=== PATIENT | male | born 1940 | race Caucasian/White ===

== ENCOUNTER 2022-05-31 09:23 | Observation (INO) ==
[2022-05-31] MEDS ORDERED: SODIUM CHLORIDE 0.9% 500 ML IV STA (09:45)
[2022-05-31] MEDS ORDERED: PANTOPRAZOLE 40 MG VIAL IV STA (09:45)
[2022-05-31 10:06] LABS: Basophils # 0.1 10*3/uL (0.0-0.2); Basophils % 1.2 % (0.0-0.8); Eosinophils # 0.2 10*3/uL (0.0-0.87); Eosinophils % 2.8 % (0.00-10.9); Hematocrit 28.8 VOL% (42.0-52.0); Hemoglobin 8.7 GM/DL (14.0-18.0); Immature Granulocytes % 0.5 %; Immature Granulocytes Absolute 0.03 #; Lymphocytes # 1.1 10*3/uL (1.4-4.0); Lymphocytes % 17.6 % (21.2-54.2); Mean Corpuscular HGB Conc 30.2 GM/DL (32-36); Mean Corpuscular Volume 80.2 FL (87-102); Mean Platelet Volume 9.9 FL (9.6-12.0); Monocytes # 0.7 10*3/uL (0.11-0.8); Neutrophils % 65.9 % (38.7-73.9); Platelet Count 369 T/CUMM (130-400); Red Blood Count 3.59 MC/CUMM (3.8-5.5)
[2022-05-31 10:17] LABS: PT Patient Result 10.8 SECS (10.1-12.1); Partial Thromboplastin Time 24.5 SECS (23.7-32.9)
[2022-05-31 10:19] LABS: Alanine Aminotransferase 22 U/L (16-61); Albumin 3.5 G/DL (3.4-5.0); Alkaline Phosphatase 50 U/L (45-117); Aspartate Amino Transferase 21 U/L (0-37); Bilirubin,Total < 0.39 MG/DL (0.20-1.00); Blood Urea Nitrogen 39 MG/DL (7-18); Calcium 8.7 MG/DL (8.5-10.1); Carbon Dioxide 28 MMOL/L (21-32); Chloride 108 MMOL/L (98-107); Glucose 116 MG/DL (74-106); Osmolality,Calculated 290.3 MOS/KG (273-304); Potassium 4.4 MMOL/L (3.5-5.1); Sodium 141 MMOL/L (136-145)
[2022-05-31] MEDS ORDERED: ONDANSETRON 4 MG/2 ML VIAL IV PRN (11:34)
[2022-05-31] MEDS ORDERED: ACETAMINOPHEN 325 MG TABLET PO PRN (11:34)
[2022-05-31] MEDS ORDERED: SODIUM CHLORIDE 0.9% 1,000 ML IV PRN ×3 (11:40→16:31)
[2022-05-31 13:02] LABS: Hematocrit 25.6 VOL% (42.0-52.0); Hemoglobin 7.9 GM/DL (14.0-18.0)
[2022-05-31] MEDS ORDERED: DOCUSATE/SENNA 50-8.6 MG TABLET PO PRN (16:05)
[2022-05-31] MEDS: minoxidiL 2.5 MG TABLET PO SCH (22:03)
[2022-05-31] MEDS: TERAZOSIN 5 MG CAPSULE PO SCH (22:03)
[2022-05-31] MEDS: SPIRONOLACTONE 25 MG TABLET PO SCH (22:03)
[2022-05-31] MEDS: PANTOPRAZOLE 40 MG VIAL IV SCH (22:31)
[2022-06-01 00:22] LABS: Hematocrit 28.2 VOL% (42.0-52.0); Hemoglobin 9.1 GM/DL (14.0-18.0)
[2022-06-01 05:46] LABS: Basophils # 0.1 10*3/uL (0.0-0.2); Basophils % 0.9 % (0.0-0.8); Eosinophils # 0.2 10*3/uL (0.0-0.87); Eosinophils % 3.5 % (0.00-10.9); Hematocrit 30.2 VOL% (42.0-52.0); Hemoglobin 9.5 GM/DL (14.0-18.0); Immature Granulocytes % 0.6 %; Immature Granulocytes Absolute 0.03 #; Mean Corpuscular HGB Conc 31.5 GM/DL (32-36); Mean Corpuscular Volume 80.7 FL (87-102); Mean Platelet Volume 9.6 FL (9.6-12.0); Monocytes # 0.6 10*3/uL (0.11-0.8); Monocytes % 11.3 % (1.7-12.7); Neutrophils % 64.7 % (38.7-73.9); Platelet Count 322 T/CUMM (130-400); Red Blood Count 3.74 MC/CUMM (3.8-5.5); Red Cell Distribution Width 19.2 % (9.3-17.3); White Blood Count 5.4 T/CUMM (4-12)
[2022-06-01 06:01] LABS: Potassium 4.1 MMOL/L (3.5-5.1)
[2022-06-01] MEDS ORDERED: SODIUM CHLORIDE 0.9% 1,000 ML IV SCH (08:00)
[2022-06-01] MEDS ORDERED: LIDOCAINE 2% 5 ML VIAL ONE (09:56)
[2022-06-01] MEDS ORDERED: propofoL 200 MG/20 ML VIAL IV ONE (09:56)
[2022-06-01] MEDS: FENOFIBRATE 160 MG TABLET PO SCH (10:56)
[2022-06-01] MEDS: TERAZOSIN 5 MG CAPSULE PO SCH ×2 (10:56→21:21)
[2022-06-01] MEDS: COENZYME Q10 100 MG CAPSULE PO SCH (10:56)
[2022-06-01] MEDS: METOPROLOL SUCCINATE XL 50 MG TABLET PO SCH (10:56)
[2022-06-01] MEDS: CHOLECALCIFEROL 1,000 UNIT TABLET PO SCH (10:57)
[2022-06-01] MEDS: POTASSIUM CHLORIDE 20 MEQ TABLET PO SCH (10:57)
[2022-06-01] MEDS: SPIRONOLACTONE 50 MG TABLET PO SCH (10:58)
[2022-06-01] MEDS: LORATADINE 10 MG TABLET PO SCH (10:58)
[2022-06-01] MEDS: AMIODARONE 200 MG TABLET PO SCH (10:58)
[2022-06-01] MEDS: ATORVASTATIN 40 MG TABLET PO SCH (10:59)
[2022-06-01] MEDS: FUROSEMIDE 40 MG TABLET PO SCH (10:59)
[2022-06-01] MEDS: minoxidiL 2.5 MG TABLET PO SCH ×2 (10:59→21:22)
[2022-06-01] MEDS: PANTOPRAZOLE 40 MG VIAL IV SCH ×2 (11:09→21:26)
[2022-06-01 11:37] LABS: % Iron Saturation 3.8 % (18-50)
[2022-06-01 11:45] LABS: Folate 9.86 NG/ML (5.38-24.0)
[2022-06-01 11:54] LABS: Hemoglobin 10.1 GM/DL (14.0-18.0)
[2022-06-01] MEDS ORDERED: BISACODYL 5 MG TABLET PO ONE (12:00)
[2022-06-01] MEDS ORDERED: POLYETHYLENE GLYCOL POWDER 255 GM BOTTLE PO ONE (18:00)
[2022-06-01] MEDS: SPIRONOLACTONE 25 MG TABLET PO SCH (21:22)
[2022-06-02 05:48] LABS: Basophils # 0.1 10*3/uL (0.0-0.2); Eosinophils # 0.3 10*3/uL (0.0-0.87); Eosinophils % 4.6 % (0.00-10.9); Hematocrit 31.9 VOL% (42.0-52.0); Hemoglobin 9.9 GM/DL (14.0-18.0); Immature Granulocytes % 0.5 %; Immature Granulocytes Absolute 0.03 #; Lymphocytes # 1.1 10*3/uL (1.4-4.0); Lymphocytes % 18.8 % (21.2-54.2); Mean Platelet Volume 9.6 FL (9.6-12.0); Monocytes # 0.7 10*3/uL (0.11-0.8); Neutrophils % 64.1 % (38.7-73.9); Platelet Count 351 T/CUMM (130-400); Red Blood Count 3.89 MC/CUMM (3.8-5.5); Red Cell Distribution Width 18.7 % (9.3-17.3); White Blood Count 5.9 T/CUMM (4-12)
[2022-06-02 06:08] LABS: Calcium 8.6 MG/DL (8.5-10.1); Osmolality,Calculated 285.1 MOS/KG (273-304)
[2022-06-02] MEDS ORDERED: hydrALAZINE 20 MG/1 ML VIAL IV PRN (08:50)
[2022-06-02] MEDS ORDERED: propofoL 200 MG/20 ML VIAL IV ONE ×2 (13:00→13:06)
[2022-06-02] MEDS ORDERED: LIDOCAINE 2% 5 ML VIAL ONE (13:00)
[2022-06-02] MEDS: SPIRONOLACTONE 50 MG TABLET PO SCH ×2 (13:30→15:59)
[2022-06-02] MEDS: AMIODARONE 200 MG TABLET PO SCH ×2 (13:30→15:56)
[2022-06-02] MEDS: POTASSIUM CHLORIDE 20 MEQ TABLET PO SCH ×2 (13:30→15:54)
[2022-06-02] MEDS: TERAZOSIN 5 MG CAPSULE PO SCH ×2 (13:30→21:43)
[2022-06-02] MEDS: LORATADINE 10 MG TABLET PO SCH ×2 (13:30→15:59)
[2022-06-02] MEDS: COENZYME Q10 100 MG CAPSULE PO SCH ×2 (13:30→15:53)
[2022-06-02] MEDS: FUROSEMIDE 40 MG TABLET PO SCH ×2 (13:31→15:55)
[2022-06-02] MEDS: ATORVASTATIN 40 MG TABLET PO SCH ×2 (13:31→15:55)
[2022-06-02] MEDS: minoxidiL 2.5 MG TABLET PO SCH ×2 (13:31→21:44)
[2022-06-02] MEDS: FENOFIBRATE 160 MG TABLET PO SCH ×2 (13:31→15:53)
[2022-06-02] MEDS: PANTOPRAZOLE 40 MG VIAL IV SCH ×2 (13:31→21:43)
[2022-06-02] MEDS: METOPROLOL SUCCINATE XL 50 MG TABLET PO SCH ×2 (13:32→15:55)
[2022-06-02] MEDS: CHOLECALCIFEROL 1,000 UNIT TABLET PO SCH ×2 (13:32→15:55)
[2022-06-02] MEDS: FERRIC GLUCONATE COMPLEX 125 MG in SODIUM CHLORIDE 0.9% 100 ML IV SCH (14:39)
[2022-06-02] MEDS: SPIRONOLACTONE 25 MG TABLET PO SCH (21:44)
[2022-06-03 05:18] LABS: Basophils # 0.1 10*3/uL (0.0-0.2); Basophils % 0.7 % (0.0-0.8); Eosinophils # 0.3 10*3/uL (0.0-0.87); Eosinophils % 3.8 % (0.00-10.9); Hematocrit 31.1 VOL% (42.0-52.0); Hemoglobin 9.8 GM/DL (14.0-18.0); Immature Granulocytes % 0.3 %; Immature Granulocytes Absolute 0.02 #; Lymphocytes % 14.1 % (21.2-54.2); Mean Corpuscular HGB Conc 31.5 GM/DL (32-36); Mean Corpuscular Volume 80.6 FL (87-102); Mean Platelet Volume 9.7 FL (9.6-12.0); Monocytes # 0.8 10*3/uL (0.11-0.8); Monocytes % 11.3 % (1.7-12.7); Neutrophils % 69.8 % (38.7-73.9); Platelet Count 358 T/CUMM (130-400); Red Blood Count 3.86 MC/CUMM (3.8-5.5); Red Cell Distribution Width 18.5 % (9.3-17.3); White Blood Count 7.2 T/CUMM (4-12)
[2022-06-03 05:43] LABS: Calcium 8.5 MG/DL (8.5-10.1); Osmolality,Calculated 284.1 MOS/KG (273-304); Potassium 3.9 MMOL/L (3.5-5.1)
[2022-06-03] MEDS: LORATADINE 10 MG TABLET PO SCH ×2 (08:21→08:24)
[2022-06-03] MEDS: COENZYME Q10 100 MG CAPSULE PO SCH (08:24)
[2022-06-03] MEDS: TERAZOSIN 5 MG CAPSULE PO SCH (08:24)
[2022-06-03] MEDS: CHOLECALCIFEROL 1,000 UNIT TABLET PO SCH (08:24)
[2022-06-03] MEDS: SPIRONOLACTONE 50 MG TABLET PO SCH (08:25)
[2022-06-03] MEDS: POTASSIUM CHLORIDE 20 MEQ TABLET PO SCH (08:25)
[2022-06-03] MEDS: FUROSEMIDE 40 MG TABLET PO SCH (08:25)
[2022-06-03] MEDS: minoxidiL 2.5 MG TABLET PO SCH (08:26)
[2022-06-03] MEDS: AMIODARONE 200 MG TABLET PO SCH (08:26)
[2022-06-03] MEDS: ATORVASTATIN 40 MG TABLET PO SCH (08:26)
[2022-06-03] MEDS: METOPROLOL SUCCINATE XL 50 MG TABLET PO SCH (08:27)
[2022-06-03] MEDS: PANTOPRAZOLE 40 MG VIAL IV SCH (08:27)
[2022-06-03] MEDS: FENOFIBRATE 160 MG TABLET PO SCH (08:33)
[2022-06-03] MEDS: FERRIC GLUCONATE COMPLEX 125 MG in SODIUM CHLORIDE 0.9% 100 ML IV SCH (10:13)
[2022-06-03 12:18] VITALS: BP 140/64
[2022-06-04] MEDS ORDERED: RIVAROXABAN 20 MG TABLET PO SCH (08:00)
== END 2022-06-03 16:07 | disposition home or self-care (01) ==
LOC: N.ED 09:23 → INTOOBSV 11:34 → SUATTDRO 11:34 → N.EDINP 11:34 → N.5E 13:01
PROVIDERS: ADMIT Internal Medicine; ATTEND Internal Medicine